=== PATIENT | male | born 2000 | race Hispanic/Latino ===

== ENCOUNTER 2024-06-14 22:02 | Emergency (ER) | payer OTHER ==
[~2024-06-14] VITALS: Ht 170.2 cm; Wt 83.5 kg
[2024-06-14 22:04] VITALS: BP 135/90; TEMP 97.7; O2SAT 99
[2024-06-15] MEDS ORDERED: MECL-209 PO (00:05)
== END 2024-06-15 01:19 | disposition home or self-care (01) ==
LOC: M ED 22:02
DX: H81.4 Vertigo of central origin (principal); Z79.899 Other long term (current) drug therapy